=== PATIENT | male | born 1970 | race Caucasian/White ===

== ENCOUNTER 2020-02-08 19:28 | Emergency (ER) | payer SELFPAY ==
[2020-02-08 19:36] VITALS: BP 150/79
--- NOTE | 2020-02-08 19:44 | ER Document Report ---
ED Medical Screen (RME) - General Chief Complaint: Leg Swelling Stated Complaint: RIGHT LEFT SWELLING Time Seen by Provider: 02/08/20 19:36 Mode of Arrival: Ambulatory Information source: Patient Notes: 49-year-old male presented to ED for complaint of pain change in color and swelling to the right foot and leg. He states he went to bed this afternoon for a nap woke up with excruciating pain to the foot and leg swelling to the leg and numbness to the right foot. The right foot is darker than the left foot there is swelling to the right leg. Pedal pulses were found with the Doppler. Tiana mcrae also states that he also got something in his right this morning and it has been hurting since this morning. I have greeted and performed a rapid initial assessment of this patient. A comprehensive ED assessment and evaluation of the patient, analysis of test results and completion of medical decision making process will be conducted by an additional ED providers. - Related Data Allergies/Adverse Reactions: No Known Allergies Allergy (Unverified 02/08/20 19:35) Physical Exam - Vital signs Vitals: Temp Pulse Resp BP Pulse Ox 98.4 F 99 20 150/79 H 95 02/08/20 19:34 02/08/20 19:34 02/08/20 19:34 02/08/20 19:34 02/08/20 19:34 Course - Vital Signs Vital signs: Temp Pulse Resp BP Pulse Ox 98.4 F 99 20 150/79 H 95 02/08/20 19:34 02/08/20 19:34 02/08/20 19:34 02/08/20 19:34 02/08/20 19:34
--- NOTE | 2020-02-08 20:22 | ER Document Report ---
ED Extremity Problem, Lower - General Chief Complaint: Leg Swelling Stated Complaint: RIGHT LEFT SWELLING Time Seen by Provider: 02/08/20 19:36 Primary Care Provider: BETTY FRENCH MD [ACTIVE STAFF] - Follow up as needed ARLEY CAO DPM [ACTIVE STAFF] - Follow up as needed JAROCHO NICHOLE DPM [ACTIVE STAFF] - Follow up as needed Mode of Arrival: Ambulatory Notes: Patient is 49-year-old male with history of diabetes who presents emergency department with a chief complaint of right lower leg pain. His pain started around 1:00 this afternoon. He states that the pain starts in his mid calf and goes down to his toes. He has not had this before. Patient has diabetic neuropathy. He is currently on gabapentin. Patient states that he went to his primary care provider this past Monday and his hemoglobin A1c was 13. 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 Patient also notes that he feels like he got something in his right eye. - Related Data Allergies/Adverse Reactions: No Known Allergies Allergy (Unverified 02/08/20 19:35) Past Medical History - General Information source: Patient - Social History Smoking Status: Current Every Day Smoker Family History: Reviewed & Not Pertinent Patient has suicidal ideation: No Patient has homicidal ideation: No Review of Systems - Review of Systems Notes: REVIEW OF SYSTEMS: CONSTITUTIONAL : Denies recent illness. Denies recent unintentional weight loss. Denies fever, chills, or sweats. EENT: Denies ear, throat, or mouth pain, discharge, or symptoms. Denies nasal or sinus congestion. See HPI. CARDIOVASCULAR: Denies chest pain. RESPIRATORY: Denies shortness of breath, cough, congestion, difficulty breathing, or wheezing. GASTROINTESTINAL: Denies nausea, vomiting, and diarrhea. Denies abdominal pain. Denies constipation. GENITOURINARY: Denies difficulty urinating, burning, blood in urine, urgency or frequency. MUSCULOSKELETAL: Denies neck and back pain. See HPI. SKIN: Denies rash, itchiness, or lesions HEMATOLOGIC : Denies easy bruising or bleeding. LYMPHATIC: Denies swollen, painful, enlarged glands. NEUROLOGICAL: Denies no numbness or tingling denies weakness. Denies headache. Denies altered mental status. Denies alteration in speech. PSYCHIATRIC: Denies stress, anxiety, alteration in sleep patterns, or depression. All other systems reviewed and negative. Physical Exam - Vital signs Vitals: Temp Pulse Resp BP Pulse Ox 98.4 F 99 20 150/79 H 95 02/08/20 19:34 02/08/20 19:34 02/08/20 19:34 02/08/20 19:34 02/08/20 19:34 - Notes Notes: PHYSICAL EXAMINATION: GENERAL: Appears well, healthy, well-nourished, no acute distress. HEAD: Normocephalic, atraumatic. EYES: PERRL, conjunctiva normal, all extraocular movements intact, sclera nonicteric ENT: Moist mucous membranes. NECK: Supple, no noticeable swelling, redness, rash. Normal range of motion. LUNGS: Equal breath sounds bilaterally and clear to auscultation. No wheezes rales or rhonchi. CARDIOVASCULAR: S1-S2, regular rate, regular rhythm. Radial pulses 2+, normal. ABDOMEN: Normoactive bowel sounds. Soft, nontender, no guarding, no rebound tenderness, and no masses palpated. EXTREMITIES: Normal strength and range of motion, no pitting or edema. No cyanosis. NEUROLOGICAL: Moves all extremities upon command. Strength 5/5 in all extremities. PSYCH: Normal mood, normal affect. SKIN: Warm, dry. No rash, lesions, ulcerations noted. Normal skin turgor. Course - Re-evaluation Re-evalutation: 02/08/20 20:38 Patient's venous Doppler study is negative for DVTs. He does have some small plantar and posterior calcaneus spurs noted. This may be the cause of his pain that he is feeling. With his diabetic neuropathy, he is probably just feeling this right now. 02/08/20 20:59 Patient has 2 corneal abrasions noted to his right eye. One at the 3 o'clock position and the other at the 6 o'clock position of his iris. Patient will be started on Polytrim eyedrops and sent home with a prescription for Acular eyedrops. He will follow-up with his primary care provider. I have referred him opthomology and podiatry for follow up. Negative Corrina sign. No globe rupture noted. Follow-up precautions were given. Verbal discharge instructions were given to the patient. They verbalized understanding. They are stable for discharge. - Vital Signs Vital signs: Temp Pulse Resp BP Pulse Ox 98.4 F 99 20 150/79 H 95 02/08/20 19:34 02/08/20 19:34 02/08/20 19:34 02/08/20 19:34 02/08/20 19:34 Discharge - Discharge Clinical Impression: Right leg pain, Calcaneal spur, right Uncontrolled diabetes mellitus Qualifiers: Diabetes mellitus type: other specified (including ROBB) Glycemic state: with hyperglycemia Qualified Code(s): E13.65 - Other specified diabetes mellitus with hyperglycemia Condition: Stable Disposition: HOME, SELF-CARE Additional Instructions: You were seen today in the emergency department for right leg pain. You do not have a blood clot in your leg. Please make sure you are checking your sugar and covering for high blood sugars. Please follow-up with your primary care provider. You have bone spurs. Rest, elevate your leg for the swelling. You are being referred to a cocoa powder mixer operator here in the area, but you may need to follow- up with your regular doctor to be referred to a cocoa powder mixer operator in your area. He also have a corneal abrasion noted to your right eye. Please use Polytrim eyedrops. Place 1 drop to your right eye 4 times a day for 7 days. You can use Acular eyedrops as needed for pain. If you continue to have symptoms, follow-up with ophthalmology. Prescriptions: Ketorolac Tromethamine [Acular] 1 drop OD TIDP PRN #5 ml PRN Reason: Referrals: BETTY FRENCH MD [ACTIVE STAFF] - Follow up as needed JAROCHO NICHOLE DPM [ACTIVE STAFF] - Follow up as needed ARLEY CAO DPM [ACTIVE STAFF] - Follow up as needed
--- NOTE | 2020-02-08 20:23 | RADIOLOGY REPORT (SQ) ---
EXAM DESCRIPTION: Right foot x-ray three views COMPLETED DATE/TME: 02/08/2020 19:45 CLINICAL HISTORY: 49 years, Male, Pain swelling right lower leg COMPARISON: None. FINDINGS: I am mansoor is in the tibia is partially visualized but appears intact without evidence of loosening. No acute fracture. No dislocation. Soft tissues are unremarkable. Small plantar and posterior calcaneal spurs. IMPRESSION: No acute osseous abnormalities.
--- NOTE | 2020-02-08 20:24 | RADIOLOGY REPORT (SQ) ---
EXAM DESCRIPTION: Right tib-fib x-ray, two views COMPLETED DATE/TME: 02/08/2020 19:45 CLINICAL HISTORY: CLINICAL HISTORY: 49 years Male, Pain swelling right lower leg COMPARISON: None. FINDINGS: IM mansoor fixation of the tibia is intact without evidence of loosening. Old healed proximal tibia and fibular fractures are noted. No acute fractures. Soft tissues are unremarkable. IMPRESSION: No acute osseous abnormalities.
[2020-02-08] MEDS ORDERED: HYDROCODONE/ACETAMINOPHEN 5-325 MG TABLET PO ONE (20:34)
[2020-02-08] MEDS ORDERED: TETRACAINE HCL 0.5% OPH SOLN 4 ML OD ONE (20:34)
--- NOTE | 2020-02-08 20:49 | RADIOLOGY REPORT (SQ) ---
EXAM DESCRIPTION: US EXTREMITY VEINS UNILATERAL COMPLETED DATE/TME: 02/08/2020 19:44 CLINICAL HISTORY: 49 years, Male, Right lower leg pain swelling numbness to the foot COMPARISON: None. FINDINGS: Duplex imaging of the deep venous system of right lower extremity was performed with visualization from the common femoral veins to the popliteal veins and posterior tibial vein. There is normal compressibility, augmentation and flow with no visualized thrombus. No focal fluid collection is identified. IMPRESSION: Negative for DVT in the right lower extremity.
[2020-02-08] MEDS ORDERED: POLYMYXIN B SULFATE/TMP OPH SOLN (10 ML/ER DISP) OD ONE (21:03)
[2020-02-08] MEDS ORDERED: HYDROCODONE/ACETAMINOPHEN 5-325 MG (6 TAB/ER DISP) PO PRN (21:03)
== END 2020-02-08 21:23 | disposition home or self-care (01) ==
LOC: ER 19:28
DX: M77.31 Calcaneal spur, right foot (principal); E13.65 Other specified diabetes mellitus with hyperglycemia; M79.604 Pain in right leg; M79.89 Other specified soft tissue disorders; Z79.899 Other long term (current) drug therapy; F17.200 Nicotine dependence, unspecified, uncomplicated
CPT/HCPCS: 99284; 93971; 73630; 73590; J3490 ×2

== ENCOUNTER 2020-03-17 16:54 | Emergency (ER) | payer SELFPAY ==
--- NOTE | 2020-03-17 17:19 | ER Document Report ---
Doctor's Note Notes: 03/17/20 17:17 Patient eloped prior to evaluation by physician.
[2020-03-17 19:38] VITALS: BP 138/74
== END 2020-03-17 17:07 | disposition left against medical advice (07) ==
LOC: ER 16:54
DX: Z53.21 Procedure and treatment not carried out due to patient leaving prior to being seen by health care provider (principal); R06.02 Shortness of breath

== ENCOUNTER 2020-09-20 13:34 | Emergency (ER) | payer SELFPAY ==
[2020-09-20] MEDS ORDERED: OXYCODONE-ACETAMINOPHEN 5-325 MG TABLET PO ONE ×2 (14:18→17:23)
--- NOTE | 2020-09-20 14:19 | ER Document Report ---
ED Medical Screen (RME) - General Chief Complaint: High Blood Sugar Stated Complaint: BLOOD SUGAR ISSUES/ABSCESS Time Seen by Provider: 09/20/20 14:12 - HPI Notes: 09/20/20 14:19 50-year-old male with past medical history of insulin-dependent diabetes, hypertension to the emergency department with complaints of a right axillary abscess for the past 3 days and labile blood sugars. States it has been running about 200-2 50 for the past couple of days but today when he took his blood sugar read high on his glucometer. He states that the abscess in his right armpit has progressively gotten worse as well. States it is very painful. States he has not been able to get it to drain. Denies any fevers but does endorse chills. Denies any chest pain or shortness of breath. Brief medical screening exam reveals a indurated and painful abscess to the right axilla with mild erythema. I performed a brief medical screening exam on the patient determined that the patient needs further evaluation and management by main side provider. I have placed initial orders to help expedite care. - Related Data Allergies/Adverse Reactions: No Known Allergies Allergy (Verified 09/20/20 14:13) Physical Exam - Vital signs Vitals: Temp Pulse Resp BP Pulse Ox 98.5 F 80 18 152/83 H 96 09/20/20 14:11 09/20/20 14:11 09/20/20 14:11 09/20/20 14:11 09/20/20 14:11 Course - Vital Signs Vital signs: Temp Pulse Resp BP Pulse Ox 98.5 F 80 18 152/83 H 96 09/20/20 14:11 09/20/20 14:11 09/20/20 14:11 09/20/20 14:11 09/20/20 14:11
[2020-09-20 15:22] LABS: ABSOLUTE EOSINOPHILS # (AUTO) 0.3 10^3/uL (0.0-0.6); ABSOLUTE LYMPHOCYTES (AUTO) 2.4 10^3/uL (0.5-4.7); ABSOLUTE MONOCYTES (AUTO) 0.4 10^3/uL (0.1-1.4); BASOPHILS % (AUTO) 0.3 % (0-2); EOSINOPHILS % (AUTO) 2.9 % (0-6); HEMATOCRIT 41.9 % (37.9-51.0); HEMOGLOBIN 14.3 g/dL (13.5-17.0); LYMPHOCYTES % (AUTO) 26.4 % (13-45); MEAN CORPUSCULAR HGB CONC 34.2 g/dL (32.0-36.0); MEAN CORPUSCULAR VOLUME 91 fl (80-97); MONOCYTES % (AUTO) 4.7 % (3-13); PLATELET COUNT 155 10^3/uL (150-450); RED BLOOD COUNT 4.63 10^6/uL (4.35-5.55); RED CELL DISTRIBUTION WIDTH 12.8 % (11.5-14.0); SEGMENTED NEUTROPHILS % (AUTO) 65.7 % (42-78); TOTAL CELLS COUNTED % (AUTO) 100 %; WHITE BLOOD COUNT 9.1 10^3/uL (4.0-10.5)
[2020-09-20 15:23] LABS: VENOUS BLOOD BASE EXCESS 0.8 mmol/L; VENOUS BLOOD HCO3 26.3 mmol/L (20-32); VENOUS BLOOD PCO2 44.6 mmHg (35-63); VENOUS BLOOD PH 7.39 (7.30-7.42)
[2020-09-20 15:41] LABS: ALBUMIN 3.5 g/dL (3.5-5.0); ALKALINE PHOSPHATASE 195 U/L (38-126); ANION GAP 14 (5-19); ASPARTATE AMINO TRANSFERASE 15 U/L (17-59); BILIRUBIN,DIRECT 0.2 mg/dL (0.0-0.4); BILIRUBIN,TOTAL 0.4 mg/dL (0.2-1.3); BLOOD UREA NITROGEN 8 mg/dL (7-20); CALCIUM 8.4 mg/dL (8.4-10.2); CARBON DIOXIDE 23 mmol/L (22-30); CHLORIDE 94 mmol/L (98-107); POTASSIUM 4.2 mmol/L (3.6-5.0); TOTAL PROTEIN 6.2 g/dL (6.3-8.2)
[2020-09-20 15:50] LABS: GLUCOSE 647 mg/dL (75-110)
--- NOTE | 2020-09-20 17:21 | ER Document Report ---
ED Blood Sugar Problem - General Chief Complaint: High Blood Sugar Stated Complaint: BLOOD SUGAR ISSUES/ABSCESS Time Seen by Provider: 09/20/20 14:12 Primary Care Provider: [facility] [Provider Group] - Follow up as needed [facility] [Provider Group] - Follow up as needed Notes: Patient is a 50-year-old with a history of type 1 diabetes who presents emergency department with 2 complaints. Patient complains of elevated blood sugar. Patient reports he has been a type I diabetic for the past 10 years. Patient reports he does take an insulin injection weekly and is supposed to be on oral pills but has not received these. Patient's primary care physician is located in [place] and he has recently moved in with family here in [place]. They are working on getting him a local primary care physician. Patient states his sugars have been running high at home as well. Patient also complaint of possible abscess underneath the right axilla. Patient denies drainage. Patient has been using topical antibiotic ointment as well as warm compresses without relief. Patient reports pain that is worse with movement. Denies a history of MRSA or previous abscess in the same area. - Related Data Allergies/Adverse Reactions: No Known Allergies Allergy (Verified 09/20/20 14:13) Past Medical History - General Information source: Patient - Social History Smoking Status: Current Every Day Smoker Frequency of alcohol use: None Drug Abuse: None Lives with: Family Family History: Reviewed & Not Pertinent Patient has homicidal ideation: No - Past Medical History Cardiac Medical History: Reports: None Pulmonary Medical History: Reports: None EENT Medical History: Reports: None Neurological Medical History: Reports: None Endocrine Medical History: Reports: Hx Diabetes Mellitus Type 1 Renal/ Medical History: Reports: None Malignancy Medical History: Reports None GI Medical History: Reports: None Musculoskeletal Medical History: Reports None Skin Medical History: Reports None Psychiatric Medical History: Reports: None Traumatic Medical History: Reports: None Infectious Medical History: Reports: None Surgical Hx: Negative Review of Systems - Review of Systems Constitutional: No symptoms reported EENT: No symptoms reported Cardiovascular: No symptoms reported Respiratory: No symptoms reported Gastrointestinal: No symptoms reported Genitourinary: No symptoms reported Male Genitourinary: No symptoms reported Musculoskeletal: No symptoms reported Skin: See HPI Hematologic/Lymphatic: No symptoms reported Neurological/Psychological: No symptoms reported Physical Exam - Vital signs Vitals: Temp Pulse Resp BP Pulse Ox 98.5 F 80 18 152/83 H 96 09/20/20 14:11 09/20/20 14:11 09/20/20 14:11 09/20/20 14:11 09/20/20 14:11 Interpretation: Hypertensive - Notes Notes: GENERAL: Well-appearing, well-nourished and in no acute distress. HEAD: Atraumatic, normocephalic. EYES: Pupils equal round and reactive to light, extraocular movements intact, sclera anicteric, conjunctiva are normal. ENT: Nares patent, oropharynx clear without exudates. Moist mucous membranes. NECK: Normal range of motion, supple without lymphadenopathy or JVD. LUNGS: Breath sounds clear to auscultation bilaterally and equal. No wheezes rales or rhonchi. HEART: Regular rate and rhythm without murmurs, rubs or gallops. ABDOMEN: Soft, nontender, normoactive bowel sounds. No guarding, no rebound. No masses appreciated. BACK: No cervical, thoracic, lumbar midline tenderness. No saddle anesthesia, normal distal neurovascular exam. GENITOURINARY: Deferred. EXTREMITIES: Normal range of motion, no pitting or edema. No clubbing or cyanosis. NEUROLOGICAL: Cranial nerves II through XII grossly intact. Normal speech, normal gait. PSYCH: Normal mood, normal affect. SKIN: Warm, Dry, normal turgor, Right axilla; 1x1cm raised area, slightly reddened, no drainage, non-fluctuate, no surrounding cellulitis, tender axillary lymphadenopathy Course - Re-evaluation Re-evalutation: 09/20/20 17:57 Patient was given another dose of pain medication for his right axilla pain. Will place the patient on oral antibiotics at time of discharge. Patient instructed as well as the family member to continue warm compresses as this c ould turn into an abscess. I did discuss with Dr. Galeano, patient labs, he is not acidotic at this time. We will give the patient IV insulin as well as IV fluids. 09/20/20 19:46 Patient's blood pressure has significantly improved. Patient states he would like me to take a look at his feet as he is having some foot swelling. Patient socks were removed. There is no skin breakdown. I did visualize in between each toe. There is no redness or signs of infection. Slight nonpitting +1 edema noted to the left foot, no edema noted to the right foot. Patient has been laying in the bed all day as he has been in the emergency department for multiple hours. This could be related. I did inform the patient to elevate his legs over the next few days. 09/20/20 20:04 Attempted to I&D abscess under right axilla. There was no purulent drainage, only blood. Patient to continue using warm compresses and start antibiotics. Patient is given first oral dose here. - Vital Signs Vital signs: Temp Pulse Resp BP Pulse Ox 97.9 F 70 18 132/76 H 98 09/20/20 18:18 09/20/20 18:18 09/20/20 18:18 09/20/20 18:18 09/20/20 18:18 - Laboratory Result Diagrams: 09/20/20 14:45 09/20/20 14:45 Laboratory results interpreted by me: 09/20/20 09/20/20 09/20/20 14:45 14:50 19:03 Sodium 130.8 L Chloride 94 L Creatinine 0.41 L Glucose 647 H* POC Glucose 298 H AST 15 L Alkaline Phosphatase 195 H Total Protein 6.2 L Urine Glucose (UA) >=500 H 09/20/20 17:59 Patient does not have a leukocytosis, anemia. Patient is hyperglycemic with a blood sugar of 647. Patient's corrected sodium is 140. Not acidotic. Laboratory 09/20/20 09/20/20 09/20/20 14:45 14:45 14:45 WBC 9.1 RBC 4.63 Hgb 14.3 Hct 41.9 MCV 91 MCH 31.0 MCHC 34.2 RDW 12.8 Plt Count 155 Lymph % (Auto) 26.4 [place] % (Auto) 4.7 Eos % (Auto) 2.9 Baso % (Auto) 0.3 Absolute Neuts (auto) 6.0 Absolute Lymphs (auto) 2.4 Absolute Monos (auto) 0.4 Absolute Eos (auto) 0.3 Absolute Basos (auto) 0.0 Seg Neutrophils % 65.7 VBG pH 7.39 VBG pCO2 44.6 VBG HCO3 26.3 VBG Base Excess 0.8 Sodium 130.8 L Potassium 4.2 Chloride 94 L Carbon Dioxide 23 Anion Gap 14 BUN 8 Creatinine 0.41 L Est GFR ( Amer) > 60 Est GFR (MDRD) Non-Af > 60 Glucose 647 H* Calcium 8.4 Total Bilirubin 0.4 Direct Bilirubin 0.2 Neonat Total Bilirubin Not Reportable Neonat Direct Bilirubin Not Reportable Neonat Indirect Bili Not Reportable AST 15 L ALT 18 Alkaline Phosphatase 195 H Total Protein 6.2 L Albumin 3.5 09/20/20 18:00 Procedures - Incision and Drainage Right Upper Arm Time completed: 19:55 Type: Simple Anesthetic type: 1% Lidocaine mL's of anesthetic: 3 Blade size: 11 I&D procedure: Betadine prep applied Incision Method: Incision made by scalpel Amount/type of drainage: Bloody Notes: 09/20/20 20:04 0.5 cm incision made, bloody non purulent drainage noted. Discharge - Discharge Clinical Impression: Pain in right axilla, Abscess of axilla, right Diabetes type 1, uncontrolled Qualifiers: Glycemic state: with hyperglycemia Qualified Code(s): E10.65 - Type 1 diabetes mellitus with hyperglycemia Condition: Stable Disposition: HOME, SELF-CARE Instructions: Cephalexin ([facility]) Additional Instructions: *Today are seen in the emergency department for elevated blood sugar. Your blood sugar was in the 600s. We did give you IV fluids to obtain adequate hydration as well as IV insulin. You need to follow-up with your primary care physician, if you are able to get in quicker with your doctor in [place] this would be advised. You could always call them to see where the oral diabetes medication was sent to see can pick this up at the pharmacy. Please limit carbohydrates and sugars. Please make sure that you are drinking plenty of fluids to stay hydrated. *You are also seen for a possible abscess underneath the right armpit. ABSCESS: You have an abscess (boil). This a pus-forming infection, usually due to staph. Some boils may be left to drain on their own, but most require lancing. From the time the tender lump first appears, it may be three or four days before the abscess is ready to livia. Local heat and rest help at this stage of treatment. An antibiotic may prevent spread of the infection. Once the abscess is opened, packing may be placed into it. This is done so pus is not sealed inside by premature closure of the cavity. The packing will be removed at your follow-up visit or you may be advised to remove it yourself at home. Sometimes this packing must be replaced a few times during healing. The wound will heal with surprisingly little scar. Depending on the size and location of an abscess, healing can take one to four weeks. You may shower and wash the area around the incision site two or three times a day. Antibiotics may be prescribed, but are usually not necessary after an abscess has been drained. If you develop fever, chills, worsening pain, or increasing swelling in the area, call the doctor or return immediately. POST INCISION AND DRAINAGE: You have had an incision made to allow drainage of an abscess. The incision must remain open so that pus and debris can drain from the wound. If the abscess cavity is large, packing is placed. This keeps the tissues from collapsing and trapping pus inside, while the body shrinks the cavity. The packing may need to be replaced every day or two. The physician will instruct you on the packing. Keep a bulky dressing over the area. Replace it if it becomes saturated with blood or pus. Do not disturb the packing (if present). You may shower and cleanse the area with gentle soap and warm water two or three times a day. Local warmth may be soothing, and may promote faster healing. Return if you develop high fever or chills, or if you note spreading redness, increasing swelling, or increasing tenderness. CEPHALEXIN: The antibiotic you've been prescribed is a member of the cephalosporin class. This type of antibiotic covers a wide variety of infections, including those of the skin, lungs, and urinary tract. It's useful for staph infections. This antibiotic is slightly similar to the penicillin family. In rare cases, a person who is allergic to penicillin will also be allergic to this medication. If you have had a severe allergic reaction to penicillin, and have not taken this antibiotic since that time, notify your doctor. Antibiotics which cover many germs ("broad spectrum" antibiotics) are more likely to cause diarrhea or "yeast" infections. Women prone to vaginal yeast problems may suffer an attack after taking this antibiotic. In infants, oral thrush (white spots "stuck" on the cheek) or yeast diaper rash may result. See your doctor if these problems occur. Call at once if you develop itching, hives, shortness of breath, or lightheadedness. FOLLOW-UP CARE: Most simple abscesses will not require a follow up visit. If you had packing placed in the abscess, remove it as instructed by the physician. If you have been referred to a physician for follow-up care, call the physicians office for an appointment as you were instructed or within the next two days. If you experience worsening or a significant change in your symptoms, return to the Emergency Department at any time for re-evaluation. Hyperglycemia (High Blood Sugar) You have an abnormally high blood sugar. Not all high blood sugar requires long-term treatment. High blood sugar can be due to medications, , or the stress of illness. (These cases are "borderline diabetes.") If the doctor feels your high blood sugar might resolve with time, you may not require treatment now. You will be scheduled for further evaluation. It's very important that you follow through, to see if the blood sugar returns to normal levels. Uncontrolled high blood sugar leads to early heart disease, strokes, nerve damage, eye damage, and kidney damage. Call the physician if there is faintness, excess sleepiness, or very rapid breathing. Abscess You have an abscess (boil). This a pus-forming infection, usually due to staph. Some boils may be left to drain on their own, but most require lancing. From the time the tender lump first appears, it may be three or four days before the abscess is ready to livia. Local heat and rest help at this stage of treatment. An antibiotic may prevent spread of the infection. Once the abscess is opened, packing may be placed into it. This is done so pus is not sealed inside by premature closure of the cavity. The packing will be removed at your follow-up visit or you may be advised to remove it yourself at home. Sometimes this packing must be replaced a few times during healing. The wound will heal with surprisingly little scar. Depending on the size and location of an abscess, healing can take one to four weeks. You may shower and wash the area around the incision site two or three times a day. Antibiotics may be prescribed, but are usually not necessary after an abscess has been drained. If you develop fever, chilling, worsening pain, or increasing swelling in the area, call the doctor or return immediately. Prescriptions: Cephalexin Monohydrate [Keflex 500 mg Capsule] 500 mg PO Q6H 5 Days capsule Referrals: [facility] [Provider Group] - Follow up as needed [facility] [Provider Group] - Follow up as needed
[2020-09-20] MEDS ORDERED: INSULIN REG, HUMAN 100 UNIT/ML 3 ML VIAL (PYX) IV ONE (17:23)
[2020-09-20] MEDS ORDERED: NORMAL SALINE 1000 ML 1,000 ML IV ONE ×2 (17:24→19:09)
[2020-09-20 18:19] VITALS: BP 132/76
[2020-09-20 18:23] LABS: APPEARANCE,URINE CLEAR; BILIRUBIN,URINE NEGATIVE (NEGATIVE); COLOR,URINE COLORLESS; GLUCOSE, URINE >=500 mg/dL (NEGATIVE); KETONES,URINE NEGATIVE (NEGATIVE); LEUKOCYTE ESTERASE,URINE NEGATIVE (NEGATIVE); NITRITE,URINE NEGATIVE (NEGATIVE); PROTEIN,URINE NEGATIVE (NEGATIVE); UROBILINOGEN,URINE NEGATIVE mg/dL (<2.0)
[2020-09-20] MEDS ORDERED: CEPHALEXIN 500 MG CAPSULE PO ONE (20:05)
== END 2020-09-20 20:30 | disposition home or self-care (01) ==
LOC: ER 13:34
DX: E10.65 Type 1 diabetes mellitus with hyperglycemia (principal); L02.411 Cutaneous abscess of right axilla; R60.0 Localized edema; Z79.4 Long term (current) use of insulin; F17.200 Nicotine dependence, unspecified, uncomplicated
CPT/HCPCS: 10060; 99284; 96361; 96374; 36415; 82010; 82962; 85025; 80053; 81001; 82803; J1815; J7030